=== PATIENT | male | born 1960 | race Caucasian/White ===

== ENCOUNTER 2020-11-06 14:33 | Emergency (ER) | payer MEDICAID ==
[~2020-11-06] VITALS: Ht 185.4 cm; Wt 104.0 kg
[~2020-11-06 14:33] MED LIST: IBUP-1984 PO; IBUP100O20 PO; INHALER; MICO90PO TOP; MUPI15CR TP
[2020-11-06 14:44] VITALS: BP 144/63
[2020-11-06] MEDS ORDERED: DOXY100C76 PO (16:01)
== END 2020-11-06 16:51 | disposition home or self-care (01) ==
LOC: ER 14:34
DX: L02.415 Cutaneous abscess of right lower limb (principal); G89.29 Other chronic pain; Z59.0 Homelessness; Z88.8 Allergy status to other drugs, medicaments and biological substances; Z79.2 Long term (current) use of antibiotics; Z79.899 Other long term (current) drug therapy
CPT/HCPCS: 99283

== ENCOUNTER 2020-11-11 14:10 | Emergency (ER) | payer MEDICAID ==
[~2020-11-11] VITALS: Ht 182.9 cm; Wt 100.0 kg
[~2020-11-11 14:10] MED LIST changes: +DOXY100C76 PO; +LIDOcaine 1% W/epiNEPHrine 1:100,000 20ml vial ONE
[2020-11-11 14:28] VITALS: BP 121/75
[2020-11-11] MEDS ORDERED: DOXY-11 PO (15:46)
[2020-11-11] MEDS ORDERED: CHLO118L3 TOP (16:11)
== END 2020-11-11 16:33 | disposition home or self-care (01) ==
LOC: ER 14:10
DX: L02.415 Cutaneous abscess of right lower limb (principal); M79.604 Pain in right leg; G89.29 Other chronic pain; Z98.890 Other specified postprocedural states; Z59.0 Homelessness; Z88.6 Allergy status to analgesic agent; Z88.5 Allergy status to narcotic agent; Z88.8 Allergy status to other drugs, medicaments and biological substances; Z79.2 Long term (current) use of antibiotics; Z79.899 Other long term (current) drug therapy
CPT/HCPCS: 10060; 87070; 87077; 87186; 99283

== ENCOUNTER 2020-12-29 09:22 | Emergency (ER) | payer MEDICAID ==
[~2020-12-29] VITALS: Ht 182.9 cm; Wt 97.6 kg
[~2020-12-29 09:22] MED LIST changes: +CHLO118L3 TOP; -DOXY100C76 PO; -LIDOcaine 1% W/epiNEPHrine 1:100,000 20ml vial ONE
[2020-12-29 09:25] VITALS: BP 122/79
--- NOTE | 2020-12-29 11:54 | NUR ---
Attempted to call patient back to room for the third time and he was not in lobby. No listed number. Notified Dr. West, he is aware.
[2020-12-29] MEDS ORDERED: CEPH-585 PO (15:48)
[2020-12-29] MEDS ORDERED: SULF1TAB49 PO (15:48)
== END 2020-12-29 11:55 | disposition left against medical advice (07) ==
LOC: ER 09:23
DX: M79.606 Pain in leg, unspecified (principal); Z53.21 Procedure and treatment not carried out due to patient leaving prior to being seen by health care provider

== ENCOUNTER 2020-12-29 14:42 | Emergency (ER) | payer MEDICAID ==
[~2020-12-29] VITALS: Ht 182.9 cm; Wt 92.3 kg
[2020-12-29 15:07] VITALS: BP 123/83
[2020-12-29] MEDS ORDERED: SULF1TAB49 PO (15:48)
[2020-12-29] MEDS ORDERED: CEPH-585 PO (15:48)
[2020-12-29] MEDS ORDERED: sulfamethoxazole/trimethoprim DS (800/160mg) tablet PO ONE (15:50)
[2020-12-29] MEDS ORDERED: CEFTRIAXONE 500 MG VIAL IM ONE (15:50)
[2020-12-29] MEDS ORDERED: CefTRIAXone 250MG IM Kit w/LIDOcaine IM ONE ×2 (16:00)
== END 2020-12-29 16:12 | disposition home or self-care (01) ==
LOC: ER 14:42
DX: L03.116 Cellulitis of left lower limb (principal); L03.115 Cellulitis of right lower limb; G89.29 Other chronic pain; Z98.890 Other specified postprocedural states; Z59.0 Homelessness; Z88.6 Allergy status to analgesic agent; Z88.5 Allergy status to narcotic agent; Z88.8 Allergy status to other drugs, medicaments and biological substances; Z79.2 Long term (current) use of antibiotics; Z79.899 Other long term (current) drug therapy
CPT/HCPCS: 96372; 99283; J0696

== ENCOUNTER 2022-01-05 07:44 | Emergency (ER) | payer MEDICAID ==
[~2022-01-05] VITALS: Ht 182.9 cm; Wt 100.0 kg
[~2022-01-05 07:44] MED LIST changes: +IBUP-2766 PO; -IBUP100O20 PO
[2022-01-05 10:30] LABS: BASOPHILS % (AUTO) 0.1 % (0-1); EOSINOPHILS % (AUTO) 0 % (0-6); HEMATOCRIT 39.7 % (42.0-52.0); LYMPHOCYTES # (AUTO) 0.4 X10'3 (1.1-4.8); MEAN CORPUSCULAR HEMOGLOBIN 33.2 PG (27.0-31.0); MEAN CORPUSCULAR HGB CONC 35.3 g/dL (33.0-36.5); MEAN PLATELET VOLUME 7.5 FL (7.4-10.4); MONOCYTES # (AUTO) 0.4 X10'3 (0-0.9); MONOCYTES % (AUTO) 2.7 % (2-12); NEUTROPHILS % (AUTO) 94.2 % (42-75); PLATELET COUNT 201 X10'3 (140-440); RED BLOOD COUNT 4.23 X10'6 (4.70-6.10); RED CELL DISTRIBUTION WIDTH 13.6 % (11.5-14.5); WHITE BLOOD COUNT 14.9 X10'3 (4.5-11.0)
[2022-01-05 11:02] LABS: ALANINE AMINOTRANSFERASE 58 U/L (12-78); ALBUMIN 3.3 G/DL (3.4-5.0); ALBUMIN/GLOBULIN RATIO 0.8 (1.1-1.5); ALKALINE PHOSPHATASE 49 IU/L (46-116); ANION GAP 5 (8-16); ASPARTATE AMINO TRANSFERASE 44 U/L (10-37); BILIRUBIN,TOTAL 1.2 MG/DL (0.1-1.0); BLOOD UREA NITROGEN 23 MG/DL (7-18); BUN/CREATININE RATIO 19.8 (5.4-32.0); CALCIUM 8.8 MG/DL (8.5-10.1); CHLORIDE 97 MMOL/L (99-107); CREATININE 1.16 MG/DL (0.60-1.10); GLUCOSE 105 MG/DL (70-104); POTASSIUM 3.6 MMOL/L (3.5-5.1); SODIUM 129 MMOL/L (135-145); TOTAL CARBON DIOXIDE 27.2 MMOL/L (24-32); TOTAL PROTEIN 7.2 G/DL (6.4-8.2); eGFR 64 ML/MIN
[2022-01-05] MEDS ORDERED: CefTRIAXone/D5W-Rocephin 1gm 50 ML IV ONE (11:10)
[2022-01-05] MEDS ORDERED: vancomycin/NS 1 GM ADD-VANTAGE 250 ML IV ONE (11:10)
[2022-01-05] MEDS ORDERED: normal saline 1000ML IV soln IV ONE (11:10)
[2022-01-05] MEDS ORDERED: ibuprofen tablet 400 MG TABLET PO ONE (11:45)
[2022-01-05 11:50] VITALS: BP 122/71
--- NOTE | 2022-01-05 12:19 | NUR ---
Pt states he "can't" stay any longer as he has to cancel his "food stamps". Approx 1.5L of fluid infused and rocephin finished; Vancomycin never administered. LAURA Mcdermott aware, AMA form signed.
[2022-01-05] MEDS ORDERED: IBUP-1984 PO (19:22)
== END 2022-01-05 12:21 | disposition left against medical advice (07) ==
LOC: ER 07:45
DX: L03.116 Cellulitis of left lower limb (principal); G89.29 Other chronic pain; Z98.890 Other specified postprocedural states; Z59.00 Homelessness unspecified; Z88.6 Allergy status to analgesic agent; Z88.5 Allergy status to narcotic agent; Z88.8 Allergy status to other drugs, medicaments and biological substances; Z79.2 Long term (current) use of antibiotics; Z79.899 Other long term (current) drug therapy
CPT/HCPCS: 36415; 80053; 83605; 84145; 85025; 87040; 93971; 96365; 99284; J0696; J7030

== ENCOUNTER 2022-01-05 14:44 | Inpatient (IN) | payer MEDICAID ==
[~2022-01-05] VITALS: Ht 182.9 cm; Wt 99.7 kg
[2022-01-05 17:16] LABS: BASOPHILS % (AUTO) 0.1 % (0-1); EOSINOPHILS % (AUTO) 0.1 % (0-6); HEMATOCRIT 41.6 % (42.0-52.0); HEMOGLOBIN 14.3 g/dl (14.0-17.9); LYMPHOCYTES # (AUTO) 0.6 X10'3 (1.1-4.8); LYMPHOCYTES % (AUTO) 5.1 % (21-51); MEAN CORPUSCULAR HEMOGLOBIN 32.7 PG (27.0-31.0); MEAN CORPUSCULAR HGB CONC 34.5 g/dL (33.0-36.5); MEAN CORPUSCULAR VOLUME 94.9 FL (78-98); MEAN PLATELET VOLUME 7.2 FL (7.4-10.4); MONOCYTES # (AUTO) 0.4 X10'3 (0-0.9); MONOCYTES % (AUTO) 3.9 % (2-12); NEUTROPHILS % (AUTO) 90.8 % (42-75); PLATELET COUNT 204 X10'3 (140-440); RED BLOOD COUNT 4.39 X10'6 (4.70-6.10); RED CELL DISTRIBUTION WIDTH 13.7 % (11.5-14.5)
[2022-01-05 17:32] LABS: ALANINE AMINOTRANSFERASE 59 U/L (12-78); ALBUMIN 3.1 G/DL (3.4-5.0); ALBUMIN/GLOBULIN RATIO 0.8 (1.1-1.5); ALKALINE PHOSPHATASE 48 IU/L (46-116); ANION GAP 3 (8-16); ASPARTATE AMINO TRANSFERASE 48 U/L (10-37); BILIRUBIN,TOTAL 0.8 MG/DL (0.1-1.0); BLOOD UREA NITROGEN 26 MG/DL (7-18); BUN/CREATININE RATIO 18.4 (5.4-32.0); CALCIUM 8.7 MG/DL (8.5-10.1); CHLORIDE 99 MMOL/L (99-107); CREATININE 1.41 MG/DL (0.60-1.10); GLUCOSE 116 MG/DL (70-104); POTASSIUM 3.6 MMOL/L (3.5-5.1); SODIUM 129 MMOL/L (135-145); TOTAL CARBON DIOXIDE 27.4 MMOL/L (24-32); TOTAL PROTEIN 7.1 G/DL (6.4-8.2); eGFR 51 ML/MIN
--- NOTE | 2022-01-05 18:30 | NUR ---
ASSUMED CARE OF PATIENT FROM CHIDI WILSON. Ulices+[id number]. SKIN WARM AND DRY
[2022-01-05] MEDS ORDERED: VANCOMYCIN 1GM/200ML IVPB 200 ML IV ONE (18:50)
[2022-01-05] MEDS ORDERED: IBUP-1984 PO (19:22)
[2022-01-05] MEDS ORDERED: mag hydrox/Alum hydrox/simeth 30ml oral suspension PO PRN (19:30)
[2022-01-05] MEDS ORDERED: potassium Cl 20 mEq SR tablet PO PRN ×2 (19:30)
[2022-01-05] MEDS ORDERED: magnesium 4gm in 100ml NS 100 ML IV PRN (19:30)
[2022-01-05] MEDS ORDERED: magnesium Cl slow-release 64mg tablet PO PRN (19:30)
[2022-01-05] MEDS ORDERED: magnesium hydroxide 30ml (MOM) UD suspension PO PRN (19:30)
[2022-01-05] MEDS ORDERED: magnesium 2GM in 50ml NS 50 ML IV PRN (19:30)
[2022-01-05] MEDS ORDERED: potassium CL 10mEq/100ml bag 100 ML IV PRN (19:30)
[2022-01-05] MEDS ORDERED: ondansetron/PF 4mg/2ml inj IV PRN (19:30)
[2022-01-05] MEDS: K and/or MAG REPLACEMENT MC SCH (20:00)
[2022-01-05] MEDS ORDERED: VANCOMYCIN 1GM/200ML IVPB 200 ML IV SCH ×2 (20:05→20:06)
[2022-01-05 20:11] LABS: MAGNESIUM 2.3 MG/DL (1.5-2.4)
[2022-01-05] MEDS: normal saline 1000ml 1,000 ML IV SCH (20:11)
[2022-01-05 21:15] VITALS: BP 125/81
[2022-01-05] MEDS: docusate sod 100mg capsule PO SCH (21:41)
[2022-01-05] MEDS: heparin, porcine 5000 units/ml vial SQ SCH (21:42)
--- NOTE | 2022-01-05 21:42 | NUR ---
Received report from CHIDI Aguilar. Patient arrived at 2109 with two bags of belongings. Transported by [facility] in a wheelchair. Alox4, in no apparent distress.
[2022-01-05] MEDS ORDERED: ibuprofen tablet 400 MG TABLET PO ONE (21:50)
--- NOTE | 2022-01-05 22:09 | NUR ---
Patient is refusing to let answer any admitting questions at this time. He pulled the covers over his head.
[2022-01-06] VITALS: BP 123/63
[2022-01-06 05:58] LABS: BASOPHILS % (AUTO) 0.1 % (0-1); EOSINOPHILS % (AUTO) 0.3 % (0-6); HEMATOCRIT 37.8 % (42.0-52.0); HEMOGLOBIN 13.1 g/dl (14.0-17.9); LYMPHOCYTES # (AUTO) 0.5 X10'3 (1.1-4.8); LYMPHOCYTES % (AUTO) 6.9 % (21-51); MEAN CORPUSCULAR HEMOGLOBIN 32.9 PG (27.0-31.0); MEAN CORPUSCULAR HGB CONC 34.6 g/dL (33.0-36.5); MEAN CORPUSCULAR VOLUME 95.1 FL (78-98); MEAN PLATELET VOLUME 7.7 FL (7.4-10.4); MONOCYTES # (AUTO) 0.4 X10'3 (0-0.9); MONOCYTES % (AUTO) 5.4 % (2-12); NEUTROPHILS # (AUTO) 6.3 X10'3 (1.8-7.7); NEUTROPHILS % (AUTO) 87.3 % (42-75); PLATELET COUNT 158 X10'3 (140-440); RED BLOOD COUNT 3.98 X10'6 (4.70-6.10); RED CELL DISTRIBUTION WIDTH 13.5 % (11.5-14.5); WHITE BLOOD COUNT 7.3 X10'3 (4.5-11.0)
[2022-01-06] MEDS: normal saline 1000ml 1,000 ML IV SCH ×3 (06:15→19:57)
--- NOTE | 2022-01-06 06:25 | NUR ---
Report given to CHIDI Malagon I agree with the assessment, documentation, of JENIFFER Ryder student.
[2022-01-06 06:31] LABS: ALANINE AMINOTRANSFERASE 51 U/L (12-78); ALBUMIN 2.7 G/DL (3.4-5.0); ALBUMIN/GLOBULIN RATIO 0.8 (1.1-1.5); ALKALINE PHOSPHATASE 46 IU/L (46-116); ASPARTATE AMINO TRANSFERASE 39 U/L (10-37); BILIRUBIN,TOTAL 0.6 MG/DL (0.1-1.0); BLOOD UREA NITROGEN 22 MG/DL (7-18); BUN/CREATININE RATIO 20.8 (5.4-32.0); CALCIUM 8.6 MG/DL (8.5-10.1); CHLORIDE 106 MMOL/L (99-107); CREATININE 1.06 MG/DL (0.60-1.10); GLUCOSE 101 MG/DL (70-104); MAGNESIUM 2.5 MG/DL (1.5-2.4); TOTAL PROTEIN 6.3 G/DL (6.4-8.2); eGFR 71 ML/MIN
[2022-01-06 07:00] LABS: ANION GAP 1 (8-16); POTASSIUM 3.8 MMOL/L (3.5-5.1); SODIUM 134 MMOL/L (135-145)
[2022-01-06] MEDS: heparin, porcine 5000 units/ml vial SQ SCH ×2 (07:08→19:56)
[2022-01-06] MEDS: docusate sod 100mg capsule PO SCH ×2 (07:18→19:56)
[2022-01-06] MEDS: K and/or MAG REPLACEMENT MC SCH ×2 (07:21→20:00)
[2022-01-06] MEDS ORDERED: CefTRIAXone/D5W-Rocephin 1gm 50 ML IV SCH (08:00)
[2022-01-06] MEDS: VANCOMYCIN 1GM/200ML IVPB 200 ML IV SCH ×2 (08:30→19:56)
[2022-01-06 08:41] VITALS: BP 113/68
[2022-01-06 12:28] VITALS: BP 115/73
[2022-01-06] MEDS: ketorolac trometh. 30mg/ml inj. IV PRN (14:41)
[2022-01-06 18:00] VITALS: BP 116/70
--- NOTE | 2022-01-06 18:32 | NUR ---
Problems reprioritized. Patient report given, questions answered & plan of care reviewed with CHIDI Rice. Pt refused to finish DART Admin questions. Education and reasoning provided, pt still refused. Endorsed to nightshift.
--- NOTE | 2022-01-06 18:44 | NUR ---
Patient in room [facility]. I have received report from LANDEN MURILLO and had the opportunity to ask questions and assume patient care.
[2022-01-06] MEDS ORDERED: CefTRIAXone inj 1,000 MG in normal saline 100ml IV soln 100 ML IV SCH (20:06)
--- NOTE | 2022-01-06 22:40 | NUR ---
Patient in room [facility] 352. I have received report from RN Vita and had the opportunity to ask questions and assume patient care.
[2022-01-07] VITALS: BP 114/74
[2022-01-07] MEDS: ketorolac trometh. 30mg/ml inj. IV PRN (03:06)
--- NOTE | 2022-01-07 06:12 | NUR ---
Student documentation: I have reviewed and agree with all interventions, assessments performed and documented by DEDE MURILLO. Addendum: 01/07/22 at 0630 by Krystal Turcios RN DEDE COLE
--- NOTE | 2022-01-07 06:13 | NUR ---
Problems reprioritized. Patient report given, questions answered & plan of care reviewed with LANDEN MURILLO.
--- NOTE | 2022-01-07 06:13 | NUR ---
Student Medication Administration: For this medication-pass time frame, all medication were reviewed, dispensed, administered and documented per hospital policy by DEDE MURILLO. Addendum: 01/07/22 at 0630 by Krystal Turcios RN DEDE COLE
--- NOTE | 2022-01-07 06:16 | NUR ---
Patient in room [facility] 352. I have received report from CHIDI Rice and had the opportunity to ask questions and assume patient care.
[2022-01-07] MEDS: heparin, porcine 5000 units/ml vial SQ SCH (07:20)
[2022-01-07] MEDS: normal saline 1000ml 1,000 ML IV SCH (07:24)
[2022-01-07] MEDS: docusate sod 100mg capsule PO SCH (07:26)
[2022-01-07] MEDS ORDERED: VANCOMYCIN LEVEL IV ONE (07:30)
[2022-01-07] MEDS ORDERED: pantoprazole 40mg Tablet.DR PO SCH (07:30)
[2022-01-07 07:57] LABS: BASOPHILS % (AUTO) 0.2 % (0-1); EOSINOPHILS # (AUTO) 0.1 X10'3 (0-0.9); EOSINOPHILS % (AUTO) 1.5 % (0-6); HEMATOCRIT 36.1 % (42.0-52.0); HEMOGLOBIN 12.4 g/dl (14.0-17.9); LYMPHOCYTES % (AUTO) 18.7 % (21-51); MEAN CORPUSCULAR HEMOGLOBIN 32.8 PG (27.0-31.0); MEAN CORPUSCULAR HGB CONC 34.4 g/dL (33.0-36.5); MEAN CORPUSCULAR VOLUME 95.2 FL (78-98); MEAN PLATELET VOLUME 7.5 FL (7.4-10.4); MONOCYTES # (AUTO) 0.6 X10'3 (0-0.9); MONOCYTES % (AUTO) 10.9 % (2-12); NEUTROPHILS # (AUTO) 3.8 X10'3 (1.8-7.7); NEUTROPHILS % (AUTO) 68.7 % (42-75); PLATELET COUNT 166 X10'3 (140-440); RED BLOOD COUNT 3.79 X10'6 (4.70-6.10); RED CELL DISTRIBUTION WIDTH 13.7 % (11.5-14.5); WHITE BLOOD COUNT 5.5 X10'3 (4.5-11.0)
[2022-01-07 07:59] LABS: ALANINE AMINOTRANSFERASE 67 U/L (12-78); ALBUMIN 2.3 G/DL (3.4-5.0); ALBUMIN/GLOBULIN RATIO 0.6 (1.1-1.5); ALKALINE PHOSPHATASE 81 IU/L (46-116); ANION GAP 10 (8-16); ASPARTATE AMINO TRANSFERASE 56 U/L (10-37); BILIRUBIN,TOTAL 0.4 MG/DL (0.1-1.0); BLOOD UREA NITROGEN 15 MG/DL (7-18); CALCIUM 7.5 MG/DL (8.5-10.1); CHLORIDE 107 MMOL/L (99-107); CREATININE 0.88 MG/DL (0.60-1.10); GLUCOSE 95 MG/DL (70-104); MAGNESIUM 2.2 MG/DL (1.5-2.4); POTASSIUM 3.5 MMOL/L (3.5-5.1); SODIUM 141 MMOL/L (135-145); TOTAL CARBON DIOXIDE 24.1 MMOL/L (24-32); TOTAL PROTEIN 5.9 G/DL (6.4-8.2); VANCOMYCIN,TROUGH 7.3 UG/ML (6.0-14.0); eGFR 87 ML/MIN
[2022-01-07] MEDS: K and/or MAG REPLACEMENT MC SCH (08:07)
[2022-01-07 08:19] VITALS: BP 94/55
[2022-01-07] MEDS: VANCOMYCIN 1GM/200ML IVPB 200 ML IV SCH (08:51)
[2022-01-07] MEDS ORDERED: PANT40TA54 PO (10:33)
[2022-01-07] MEDS ORDERED: DOXY-243 PO (10:33)
[2022-01-07] MEDS ORDERED: IBUP-1985 PO (10:34)
--- NOTE | 2022-01-07 11:52 | NUR ---
pt refused care at this time stating "Im going to leave right now". Refused wound care and pictures
[2022-01-07] MEDS ORDERED: VANCOmycin 1250MG/NS 250ml Bag 250 ML IV SCH (14:00)
[2022-01-09] MEDS ORDERED: VANCOMYCIN LEVEL IV ONE (01:30)
== END 2022-01-07 12:45 | disposition home or self-care (01) | DRG 383 ==
LOC: ER 14:45 → ED HOLD 19:32 → SUR 3N 21:10
PROVIDERS: ADMIT Internal Medicine; ATTEND Internal Medicine
DX: L03.116 Cellulitis of left lower limb (principal); N17.9 Acute kidney failure, unspecified; T39.315A Adverse effect of propionic acid derivatives, initial encounter; N18.30 Chronic kidney disease, stage 3 unspecified; G89.29 Other chronic pain; M54.9 Dorsalgia, unspecified; Y92.89 Other specified places as the place of occurrence of the external cause; Z59.00 Homelessness unspecified; Z88.5 Allergy status to narcotic agent; Z79.899 Other long term (current) drug therapy
CPT/HCPCS: 36415; 80053; 80202; 83605; 83735; 84145; 85025; 87040; 87081; 96374; 99285; G0378; J0696; J1644; J1885; J3370; J3490; J7030

== ENCOUNTER 2022-01-24 14:24 | Emergency (ER) | payer MEDICAID ==
[~2022-01-24] VITALS: Ht 182.9 cm; Wt 95.0 kg
[~2022-01-24 14:24] MED LIST changes: -CHLO118L3 TOP; +DOXY-243 PO; -IBUP-1984 PO; +IBUP-1985 PO; -IBUP-2766 PO; -INHALER; -MICO90PO TOP; -MUPI15CR TP; +PANT40TA54 PO
[2022-01-24 14:34] VITALS: BP 122/65
[2022-01-25] MEDS ORDERED: AMOX-115 PO (10:20)
== END 2022-01-24 15:30 | disposition left against medical advice (07) ==
LOC: ER 14:25
DX: S61.250A Open bite of right index finger without damage to nail, initial encounter (principal); G89.29 Other chronic pain; Z98.890 Other specified postprocedural states; Z59.00 Homelessness unspecified; Z88.6 Allergy status to analgesic agent; Z88.5 Allergy status to narcotic agent; Z88.8 Allergy status to other drugs, medicaments and biological substances; Z79.2 Long term (current) use of antibiotics; Z79.899 Other long term (current) drug therapy; Z53.21 Procedure and treatment not carried out due to patient leaving prior to being seen by health care provider; W55.01XA Bitten by cat, initial encounter; Y93.89 Activity, other specified; Y92.89 Other specified places as the place of occurrence of the external cause; Y99.8 Other external cause status
CPT/HCPCS: 99281

== ENCOUNTER 2022-03-22 08:54 | Emergency (ER) | payer MEDICAID ==
[~2022-03-22] VITALS: Ht 182.9 cm; Wt 97.7 kg
[~2022-03-22 08:54] MED LIST changes: -DOXY-243 PO
[2022-03-22 10:03] LABS: BASOPHILS % (AUTO) 0.5 % (0-1); EOSINOPHILS # (AUTO) 0.2 X10'3 (0-0.9); HEMATOCRIT 43.9 % (42.0-52.0); HEMOGLOBIN 15.4 g/dl (14.0-17.9); LYMPHOCYTES # (AUTO) 2.1 X10'3 (1.1-4.8); LYMPHOCYTES % (AUTO) 28.2 % (21-51); MEAN CORPUSCULAR HEMOGLOBIN 32.5 PG (27.0-31.0); MEAN CORPUSCULAR VOLUME 92.9 FL (78-98); MEAN PLATELET VOLUME 6.9 FL (7.4-10.4); MONOCYTES % (AUTO) 13.8 % (2-12); NEUTROPHILS # (AUTO) 4.2 X10'3 (1.8-7.7); NEUTROPHILS % (AUTO) 55.5 % (42-75); PLATELET COUNT 319 X10'3 (140-440); RED BLOOD COUNT 4.73 X10'6 (4.70-6.10); RED CELL DISTRIBUTION WIDTH 13.6 % (11.5-14.5); WHITE BLOOD COUNT 7.6 X10'3 (4.5-11.0)
[2022-03-22 10:17] LABS: ALANINE AMINOTRANSFERASE 41 U/L (12-78); ALBUMIN 3.8 G/DL (3.4-5.0); ALBUMIN/GLOBULIN RATIO 1.1 (1.1-1.5); ALKALINE PHOSPHATASE 61 IU/L (46-116); ANION GAP 9 (8-16); ASPARTATE AMINO TRANSFERASE 32 U/L (10-37); BILIRUBIN,TOTAL 0.5 MG/DL (0.1-1.0); BLOOD UREA NITROGEN 23 MG/DL (7-18); BUN/CREATININE RATIO 24.2 (5.4-32.0); C-REACTIVE PROTEIN 0.11 MG/DL (0.0-0.5); CALCIUM 8.8 MG/DL (8.5-10.1); CHLORIDE 105 MMOL/L (99-107); CREATININE 0.95 MG/DL (0.60-1.10); GLUCOSE 90 MG/DL (70-104); POTASSIUM 3.8 MMOL/L (3.5-5.1); SODIUM 140 MMOL/L (135-145); TOTAL CARBON DIOXIDE 26.2 MMOL/L (24-32); TOTAL PROTEIN 7.4 G/DL (6.4-8.2); eGFR 80 ML/MIN
[2022-03-22] MEDS ORDERED: DOXY100C77 PO (10:45)
[2022-03-22] MEDS ORDERED: CEPH250T PO (10:45)
[2022-03-22 11:15] VITALS: BP 136/73
== END 2022-03-22 11:18 | disposition home or self-care (01) ==
LOC: ER 08:55
DX: L03.116 Cellulitis of left lower limb (principal); R06.02 Shortness of breath; G89.29 Other chronic pain; M54.9 Dorsalgia, unspecified; Z88.6 Allergy status to analgesic agent; Z88.5 Allergy status to narcotic agent; Z79.899 Other long term (current) drug therapy
CPT/HCPCS: 36415; 80053; 85025; 85651; 86140; 93971; 99284

== ENCOUNTER 2023-12-26 14:49 | Emergency (ER) | payer MEDICAID ==
[~2023-12-26] VITALS: Ht 182.9 cm; Wt 97.4 kg
[~2023-12-26 14:49] MED LIST changes: +CHLO473M2
[2023-12-26 14:50] VITALS: BP 132/85; PULSE 91; RESP 16; TEMP 98; O2SAT 98
[2023-12-26] MEDS ORDERED: PERM60CR19 TOP (15:30)
[2023-12-26] MEDS ORDERED: CLIN300C54 PO (15:30)
== END 2023-12-26 15:39 | disposition home or self-care (01) ==
LOC: ER 14:49
DX: R21 Rash and other nonspecific skin eruption (principal); Z88.6 Allergy status to analgesic agent; Z88.5 Allergy status to narcotic agent; Z79.1 Long term (current) use of non-steroidal anti-inflammatories (NSAID); Z79.2 Long term (current) use of antibiotics; Z79.899 Other long term (current) drug therapy
CPT/HCPCS: 99283

== ENCOUNTER 2024-04-03 11:00 | Emergency (ER) | payer MEDICAID ==
[~2024-04-03] VITALS: Ht 182.9 cm; Wt 96.4 kg
[2024-04-03 11:09] VITALS: BP 123/81; PULSE 73; O2SAT 96
[2024-04-03] MEDS: dexamethasone sod phosphate 10mg/ml inj IM STA (14:26)
[2024-04-03] MEDS ORDERED: ACYC-129 PO (14:36)
[2024-04-03] MEDS ORDERED: CEPH-585 PO (14:36)
[2024-04-03] MEDS ORDERED: PRED20TA PO (14:36)
[2024-04-03 14:41] VITALS: RESP 17; TEMP 98.6
== END 2024-04-03 14:42 | disposition home or self-care (01) ==
LOC: ER 11:01
DX: S30.861A Insect bite (nonvenomous) of abdominal wall, initial encounter (principal); S20.96XA Insect bite (nonvenomous) of unspecified parts of thorax, initial encounter; R21 Rash and other nonspecific skin eruption; G89.29 Other chronic pain; M54.9 Dorsalgia, unspecified; Z59.00 Homelessness unspecified; Z88.8 Allergy status to other drugs, medicaments and biological substances; Z79.899 Other long term (current) drug therapy; Z79.1 Long term (current) use of non-steroidal anti-inflammatories (NSAID); W57.XXXA Bitten or stung by nonvenomous insect and other nonvenomous arthropods, initial encounter; Y93.89 Activity, other specified; Y92.89 Other specified places as the place of occurrence of the external cause; Y99.8 Other external cause status
CPT/HCPCS: 96372; 99283; J1100

== ENCOUNTER 2025-09-03 10:00 | Emergency (ER) | payer MEDICARE, MEDICAID ==
[~2025-09-03] VITALS: Ht 182.9 cm; Wt 96.1 kg
[~2025-09-03 10:00] MED LIST changes: -IBUP-1985 PO; +IBUP600T52 PO
[2025-09-03 10:06] VITALS: BP 126/74; PULSE 71; RESP 16; TEMP 98.3; O2SAT 97
[2025-09-03] MEDS ORDERED: SULF1TAB49 PO (10:40)
[2025-09-03] MEDS ORDERED: MUPI15CR12 TOP (10:40)
[2025-09-03] MEDS ORDERED: CHLO473M2 PO (10:40)
[2025-09-03] MEDS ORDERED: CEPH-585 PO (10:40)
--- NOTE | 2025-09-03 10:40 | Physician Documentation ---
History of Present Illness ~ Chief Complaint: Wound Stated Complaint: INFECTION Time Seen by MD: 10:24 OK to notify your PCP?: Yes Primary Medical Doctor: ALEXIS LOPEZ Source: patient Mode of Arrival: POV Exam Limitations: no limitations HPI This is a 64-year-old male with no significant past medical history who comes in couple of wounds of the lower extremities. He says he has had these for about a month. He had a round ulcerative wounds that is get honey-crusted and who is at times. He says they are painful. He has one of the left posterior calf in the one of the right lateral aleman area. He is not diabetic. He denies fevers or chills. With the patient is homeless and currently at a jail. He denies current smoking drinking or drugs Tetanus within 5 years?: Yes (2019) Medication Reconciliation Allergies: Coded Allergies: acetaminophen (Verified Allergy, Unknown, 09/03/25) hydrocodone bit (Verified Adverse Reaction, Intermediate, HALLUCINATIONS, 09/03/25) codeine (Verified Adverse Reaction, Unknown, GI, 09/03/25) Scheduled Chlorhexidine Gluconate (Chlorhexidine Gluconate), 10 ML .SEE ORDER BID Ibuprofen (Ibuprofen), 1 TAB PO Q8H Pantoprazole Sodium (Pantoprazole Sodium), 40 MG PO BKF Past Medical History Past Medical History: Chronic Back Pain, Cellulitis Past Surgical History: other Alcohol Use: None Drug Use: none Lives In: Homeless Physical Exam Vital Signs: Temperature: 98.3, Source: Oral, Heart Rate: 71, Respiratory Rate: 16, BP: 126/74, Pulse Oximetry: 97, Weight: 96.100 Oxygen Flow Rate: 0 Pulse Oximetry Reflects: adequate oxygenation General Appearance: alert, WD/WN, no apparent distress Skin To inspection of the bilateral lower extremities the patient has two round nickel sized ulcerative wounds. One of the lateral mid shaft tib-fib area one of the posterior calf. Both or honey-crusted appearing. Was minimal surrounding erythema. No ascending lymphangitis. No underlying fluctuance or obvious fluid collection. Progress Results/Orders Reviewed/noted all lab results: Yes Results/Orders Vital Signs 09/03/25 10:06 Temp 98.3 Pulse 71 Resp 16 B/P (MAP) 126/74 Pulse Ox 97 O2 Flow Rate 0 Medical Decision Making Additional information obtaine: N/A Findings Clinically the patient is well-appearing no apparent distress. He has got a couple of small ulcerative wounds of the bilateral lower extremities. They are not full-thickness or require any significant care aside from good hygiene. The patient has been apply a Neosporin to the area. I told him to stop with the Neosporin and I will prescribe chlorhexidine soap to wash the area with a follow up by Bactroban and place him on a course of Bactrim and Keflex p.o.. You can follow up with the brighton meli for recheck in the next couple of days. Return to the ER for any worsening or concerning symptoms. Differential Dx:Considerations: Include: Abscess, Cellulitis, Healing wound Additional Comment Chronic wounds. States that has ulcers. Peripheral vascular disease. Staph infection. Cellulitis. Departure Disposition: HOME / SELF CARE / HOMELESS Impression: Primary Impression: Wound cellulitis Condition: Stable Discharge Instructions: Wound Care, Adult Additional Instructions: Wash the area with the Hibiclens soap a couple of times a day and a apply the topical cream follow up by a Band-Aid. Take the antibiotics as prescribed. Follow up with the brighton meli for recheck in the next couple of days. Return to the ER for any worsening or concerning symptoms. Referrals: NO PRIMARY CARE PROVIDER (PCP) Prescriptions Mupirocin Calcium (Mupirocin) 2 % Cream..g. 1 APPLIC TOP Q8H for wound, #15 GM 0 Refills Prov: KEISHA TOPETE 09/03/25 Cephalexin*Monohydrate* (Keflex*) 500 Mg Capsule 1 CAP PO Q6H for 10 Days, #40 CAP Prov: KEISHA TOPETE 09/03/25 Sulfamethoxazole/Trimethoprim (Bactrim Ds Tablet) 800 Mg-160 Mg Tablet 1 TAB PO Q12H for 10 Days, #20 TAB Prov: KEISHA TOPETE 09/03/25 Chlorhexidine Gluconate (Chlorhexidine Gluconate) 0.12 % Mouthwash 15 ML PO Q12H for 14 Days, #473 ML 0 Refills Swish and spit Prov: KEISHA TOPETE 09/03/25 Signature Scribe Signature: No scribe Attestation: The note accurately reflects work and decisions made by me.Keisha SANCHEZ 09/03/25 10:40 KEISHA TOPETE Sep 03, 2025 10:40
[2025-09-03] MEDS: chlorhexidine gluc 4% **topical ** 120ml btl. TP ONE (11:09)
== END 2025-09-03 11:29 | disposition home or self-care (01) ==
LOC: ER 10:00
DX: L03.116 Cellulitis of left lower limb (principal); L03.115 Cellulitis of right lower limb; G89.29 Other chronic pain; Z88.5 Allergy status to narcotic agent; Z59.01 Sheltered homelessness; Z88.6 Allergy status to analgesic agent; Z79.899 Other long term (current) drug therapy
CPT/HCPCS: 99283

== ENCOUNTER 2025-09-23 12:20 | Emergency (ER) | payer MEDICARE, MEDICAID ==
[~2025-09-23] VITALS: Ht 182.9 cm; Wt 95.5 kg
[~2025-09-23 12:20] MED LIST changes: +CHLO473M2 PO; +MUPI15CR12 TOP
[2025-09-23] MEDS: HYDROcodone/acetaminophen 5mg/325mg tablet PO ONE (14:19)
[2025-09-23] MEDS: amox tr/potassium clavulanate 875/125mg TAB PO ONE (14:19)
--- NOTE | 2025-09-23 14:25 | Physician Documentation ---
History of Present Illness ~ Chief Complaint: Facial Pain Stated Complaint: INFECTION Time Seen by MD: 13:10 Primary Medical Doctor: ALEXIS LOPEZ [facility] Patient is a very pleasant 64-year-old male that presents to the emergency department for evaluation of dental pain times several days. Patient reports he has had a long history of dental cal and fractures on on the right lower jaw. Denies fever chills nausea vomiting diarrhea at this time. Patient reports the pain has been significant he has tried Tylenol ibuprofen without relief. Patient denies taking any Tylenol today did take ibuprofen this morning. Patient was like antibiotics until he can follow up with the dentist. No issues swallowing mild lymphadenopathy noted in the lower right jaw no airway com promise. Additional symptoms reported at this time. Tetanus Within 5 Years: Yes (2019) Medication Reconciliation Allergies: Coded Allergies: No Known Allergies (Unverified , 09/23/25) Scheduled Amox Tr/Potassium Clavulanate (Augmentin 875-125 Tablet), 1 TAB PO Q12H Chlorhexidine Gluconate (Chlorhexidine Gluconate), 10 ML .SEE ORDER BID Chlorhexidine Gluconate (Chlorhexidine Gluconate), 15 ML PO Q12H Ibuprofen (Ibuprofen), 1 TAB PO Q8H Mupirocin Calcium (Mupirocin), 1 APPLIC TOP Q8H Pantoprazole Sodium (Pantoprazole Sodium), 40 MG PO BKF Past Medical History Past Medical History: Chronic Back Pain, Cellulitis Past Surgical History: other Alcohol Use: None Drug Use: none Lives In: Homeless Review of Systems ROS As stated above in the HPI, otherwise all systems are reviewed and negative. Physical Exam Vital Signs: Temperature: 97.6, Source: Temporal, Heart Rate: 78, Respiratory Rate: 18, BP: 158/90, Pulse Oximetry: 98, Weight: 95.450 Physical Exam VITALS: Reviewed and as above. GENERAL: Alert, no apparent distress. HEENT: Normocephalic, atraumatic, PERRL, EOMI, dry mucosa, no erythema, edema with mild erythema noted to the gumline on the lower right jaw, swelling noted in the gumline adjacent to the 2nd and 3rd molars, right-sided lymphadenopathy noted. RESPIRATORY: Lungs clear, normal breath sounds, no respiratory distress. CHEST: No accessory muscle use, no retractions CV: Regular rate, rhythm, no edema, no murmur, No: JVD GI: Soft, non-tender, bowels sounds present, no rebound, guarding, or rigidity BACK: No CVA tenderness, or swelling MUSCULOSKELETAL No deformities, no edema SKIN: Warm and dry, no rash NEURO: Oriented x4, No motor or sensory deficit PSYCH: Normal mood and affect, no agitation Progress Results/Orders Results/Orders Completed Orders - HEENA REYES [employer] Hydrocodone/Apap 5/325mg Tab ([place] 5/32 (09/23/25 14:10) Amox Tr/Potassium Clavulanate (Augmentin (09/23/25 14:10) Medications Received in ER Medications (Trade) Dose Ordered Sig/Yanni Route PRN Reason Start Time Stop Time Status Last Admin Dose Admin ([place] 5/325mg tablet) 1 tab ONCE ONCE PO 09/23/25 14:10 09/23/25 14:11 DC 09/23/25 14:19 1 TAB (Augmentin 875-125mg tablet) 1 tab ONCE ONCE PO 09/23/25 14:10 09/23/25 14:11 DC 09/23/25 14:19 1 TAB Vital Signs 09/23/25 09/23/25 12:28 14:19 Temp 97.6 Pulse 78 Resp 18 16 B/P (MAP) 158/90 Pulse Ox 98 Medical Decision Making Additional information obtaine: other Findings 64-year-old male presented to the ED with several days of significant right lower jaw dental pain, longstanding history of dental caries and fractures. Denies fever, chills, nausea, vomiting, diarrhea, or swallowing difficulty. No airway compromise. Mild right lower jaw lymphadenopathy noted. Pain refractory to acetaminophen and ibuprofen at home; ibuprofen taken this morning, no acetaminophen today. Assessment: Patient is immunocompetent, with acute dental pain likely secondary to advanced dental caries and possible pulpitis or apical periodontitis. No evidence of systemic infection (no fever, chills, or malaise), no deep space infection, and no airway compromise. Mild local lymphadenopathy present, but no fluctuance or purulent drainage. Medical Decision-Making: Analgesia: Per ADA guidelines, first-line therapy for acute dental pain is NSAIDs (e.g., ibuprofen) alone or in combination with acetaminophen, which provides superior pain relief and safety compared to opioids. Opioids are not indicated unless pain is severe and refractory to non-opioid therapy. Antibiotics: Antibiotics are not routinely indicated for dental pain without evidence of localized abscess, spreading infection, or systemic involvement. However, in cases where definitive dental care is not immediately available and there is concern for progression (e.g., worsening swelling, lymphadenopathy), a short course of oral amoxicillin may be considered as a bridge until dental follow-up. Definitive Care: Patient instructed to follow up with dentist for definitive management (e.g., root canal or extraction per ADA guidelines). m Education: Patient advised to monitor for worsening symptoms (fever, increased swelling, difficulty swallowing, airway compromise) and return to ED if these develop. Disposition: Stable for discharge. Provided prescription for analgesics per guidelines. Antibiotics prescribed as bridge therapy until dental evaluation, with instructions to discontinue 24 hours after symptom resolution or upon dental intervention.m Plan: Continue alternating ibuprofen and acetaminophen for pain control as tolerated. Prescribe oral amoxicillin 500 mg TID for 37 days (if not allergic), discontinue 24 hours after symptom resolution. Dental referral for definitive care. Return precautions for systemic symptoms or airway compromise. Shared decision-making documented. Differential Dx:Considerations: Include: Abrasion, Contusion, Cerebral contusion, Cervical spine injury, Closed head injury, Encephalopathy, Foreign body, Fracture, facial, Intoxication-alcohol, Intoxication-other drug, Laceration, Other Departure Disposition: 01 HOME / SELF CARE / HOMELESS Impression: Primary Impression: Dental abscess Discharge Instructions: Abscess, Dental Additional Instructions: You came to the emergency department with several days of dental pain in your lower right jaw. You have a history of dental problems, including cavities and tooth fractures. You do not have fever, chills, nausea, vomiting, or trouble swallowing. Mild swelling of the lymph nodes in your jaw was noted, but there is no airway compromise. Pain Management: Take ibuprofen (up to 2,400 mg per day) and acetaminophen (up to 4,000 mg per day) as directed to help control your pain. You may take these medications together or alternate them, unless you have been told by a doctor not to use one of them. These medicines are the most effective and safest options for dental pain while you wait to see a dentist. Antibiotics: You have been prescribed antibiotics as a temporary measure until you can see a dentist. Take the antibiotics exactly as directed. If you are allergic to penicillin, let your healthcare provider know, as you may need a different medication. Stop taking the antibiotics 24 hours after your symptoms (pain and swelling) have resolved, even if you have not finished all the pills. Dental Follow-Up: It is important to see a dentist as soon as possible for definitive treatment, such as a root canal or tooth extraction. Antibiotics and pain medications are only a temporary solution and do not fix the underlying problem. When to Seek Help: Return to the emergency department or call your healthcare provider if you develop: Fever, chills, or feel generally unwell Increased swelling, redness, or pus in your mouth or jaw Trouble swallowing, breathing, or opening your mouth Severe abdominal pain or diarrhea (especially if you are taking clindamycin or azithromycin) Other Instructions: If your pain does not improve or gets worse, or if you cannot see a dentist within 23 days, call your healthcare provider for further advice. Reminders: Do not exceed the maximum daily doses of ibuprofen or acetaminophen. Do not use opioid pain medications unless specifically prescribed and discussed with your doctor, as they have higher risks and are not usually needed for dental pain. If you have any medication allergies or side effects, contact your healthcare provider. Take care and follow up with your dentist as soon as possible for the best outcome. Referrals: NO PRIMARY CARE PROVIDER (PCP) Prescriptions Chlorhexidine Gluconate (Chlorhexidine Gluconate) 0.12 % Mouthwash 15 ML PO Q12H for 14 Days, #473 ML 0 Refills Swish and spit Prov: HEENA REYES 09/23/25 Amox Tr/Potassium Clavulanate (Augmentin 875-125 Tablet) 1 Each Tablet 1 TAB PO Q12H for 10 Days, #20 TAB Prov: HEENA REYES 09/23/25 Education Educated: Patient Educated regarding: diagnosis, treatment, need for follow up Signature Scribe Signature: A Attestation: Scribed for Heena Reyes by KATIA Garsia . 09/23/25 14:33 HEENA REYES Sep 23, 2025 14:25
[2025-09-23] MEDS ORDERED: AMOX-117 PO (14:33)
[2025-09-23] MEDS ORDERED: CHLO473M2 PO (14:44)
[2025-09-23 14:46] VITALS: BP 159/93; PULSE 79; RESP 16; TEMP 97.6; O2SAT 99
== END 2025-09-23 14:45 | disposition home or self-care (01) ==
LOC: ER 12:21
DX: K04.7 Periapical abscess without sinus (principal)
CPT/HCPCS: 99283